=== PATIENT | female | born 1990 | race African-American/Black ===

== ENCOUNTER 2018-03-24 10:38 | Inpatient (IN) | payer MEDICAID ==
[~2018-03-24] VITALS: Ht 165.1 cm; Wt 51.3 kg
[2018-03-24] MEDS ORDERED: INSU100C SQ (10:53)
[2018-03-24] MEDS ORDERED: SULF1TAB48 PO (10:53)
[2018-03-24] MEDS ORDERED: ESCI20TA PO (10:53)
[2018-03-24] MEDS ORDERED: INSU100V7 SQ (10:53)
[2018-03-24] MEDS ORDERED: SUMA50TA PO (10:53)
[2018-03-24] MEDS ORDERED: IV NORMAL SALINE 1000 ML BAG IV ONE ×2 (11:00→12:15)
[2018-03-24] MEDS ORDERED: ONDANSETRON 4 MG/2 ML VIAL IV ONE (11:00)
[2018-03-24] MEDS ORDERED: ONDANSETRON 4 MG/2 ML VIAL ONE (11:04)
[2018-03-24 11:40] LABS: CREATININE 0.7 mg/dL (0.6-1.3); POTASSIUM 4.2 mmol/L (3.5-5.1)
[2018-03-24 11:43] LABS: BASOPHILS % (AUTO) 0.2 % (0.0-2.0); EOSINOPHILS # (AUTO) 0.1 K/uL (0.0-0.7); HEMATOCRIT 40.9 % (31.2-41.9); HEMOGLOBIN 13.9 g/dL (10.9-14.3); LYMPHOCYTES # (AUTO) 0.3 K/uL (20.0-40.0); MEAN CORPUSCULAR HEMOGLOBIN 30.2 uug (24.7-32.8); MONOCYTES # (AUTO) 0.4 K/uL (2.0-10.0); NEUTROPHILS # (AUTO) 0.9 K/uL (1.8-8.9); RED BLOOD CELL COUNT(AUTO) 4.61 MIL/uL (3.63-4.92)
[2018-03-24 11:45] LABS: BILIRUBIN,DIRECT 0.1 mg/dL (0.0-0.2); BILIRUBIN,TOTAL 0.5 mg/dL (0.2-1.0); TOTAL PROTEIN, SERUM 6.3 g/dL (6.4-8.2)
[2018-03-24 11:49] LABS: EOSINOPHILS % (AUTO) 7.5 % (0.0-7.0); LYMPHOCYTES % (AUTO) 19.1 % (20.5-51.5); MEAN CORPUSCULAR HGB CONC 34 g/dL (32.3-35.6); MEAN CORPUSCULAR VOLUME 88.7 fL (75.5-95.3); NEUTROPHILS % (AUTO) 51.2 % (38.5-71.5); PLATELET COUNT (AUTO) 132 K/uL (179-408)
[2018-03-24 11:51] LABS: WHITE BLOOD COUNT (AUTO) 1.7 K/uL (3.8-11.8)
[2018-03-24 12:05] LABS: *BILIRUBIN,URIN NEGATIVE (NEGATIVE); *BLOOD, URINE NEGATIVE (NEGATIVE); *CLARITY,URINE CLEAR (CLEAR); *COLOR,URINE YELLOW (YELLOW); *KETONES,URINE 2+ (NEGATIVE); *PROTEIN,URINE NEGATIVE (NEGATIVE); *UROBILINOGEN,URINE 0.2 E.U./dl (NORMAL); LEUKOCYTE ESTERASE ,URINE TRACE (NEGATIVE); NITRITE, URINE NEGATIVE (NEGATIVE)
[2018-03-24 12:07] LABS: UGLUCOSE 2+ (NEGATIVE)
[2018-03-24 12:18] LABS: BACTERIA,URINE MODERATE /HPF (NONE SEEN); SQUAMOUS EPITHELIAL CELL,UR MODERATE /HPF (NONE SEEN)
[2018-03-24] MEDS ORDERED: CEFTRIAXONE 1 G in IV DEXTROSE 5% 50 ML IV ONE (12:45)
[2018-03-24] MEDS ORDERED: CEFTRIAXONE 1 G VIAL ONE (12:47)
[2018-03-24 12:55] LABS: BAND % (MANUAL) 10 % (0-10); EOSINOPHILS % (MANUAL) 8 % (0-8); METAMYELOCYTES % 1 % (0-1); MYELOCYTES % 1 % (0-0); NEUTROPHILS % (MANUAL) 38 % (42-75)
[2018-03-24 12:56] LABS: LYMPHOCYTES % (MANUAL) 25 % (20-40); MONOCYTES % (MANUAL) 16 % (2-10)
[2018-03-24 13:01] LABS: REACTIVE LYMPHOCYTES 1 % (0-0)
--- NOTE | 2018-03-24 13:50 | NUR ---
Pt. admitted to [facility] , under care of Dr. GONSALES Belongs List completed
[2018-03-24 14:30] VITALS: BP 107/71
--- NOTE | 2018-03-24 14:30 | NUR ---
PT TRANSFERED TO FLOOR N STABLE CONDITION
[2018-03-24] MEDS ORDERED: DEXTROSE 50% 50 ML DISP.SYRIN IV PRN (15:45)
[2018-03-24] MEDS ORDERED: MORPHINE SULFATE 2 MG/1 ML DISP.SYRIN IV PRN (15:45)
[2018-03-24] MEDS ORDERED: ONDANSETRON 4 MG/2 ML VIAL IV PRN (15:45)
[2018-03-24] MEDS ORDERED: HYDROCODONE/APAP 5-325MG TABLET PO PRN (15:45)
[2018-03-24] MEDS ORDERED: INSULIN REGULAR, HUMAN 300 UNITS/3 ML VIAL SQ PRN (15:45)
[2018-03-24] MEDS ORDERED: SUMATRIPTAN SUCCINATE 50 MG TABLET PO PRN (15:45)
[2018-03-24 16:00] VITALS: BP 86/56
[2018-03-24] MEDS: BLOOD SUGAR DIAGNOSTIC 1 EACH STRIP VI SCH ×2 (16:44→20:34)
[2018-03-24] MEDS: ACETAMINOPHEN 325 MG TABLET PO PRN (17:14)
[2018-03-24] MEDS: INSULIN REGULAR, HUMAN 300 UNIT/3 ML VIAL SQ PRN (17:15)
[2018-03-24] MEDS ORDERED: ESCI10TA PO (17:22)
[2018-03-24] MEDS: ESCITALOPRAM OXALATE 10 MG TABLET PO SCH (18:10)
[2018-03-24 18:14] LABS: BASOPHILS % (AUTO) 0.1 % (0.0-2.0); EOSINOPHILS # (AUTO) 0.2 K/uL (0.0-0.7); EOSINOPHILS % (AUTO) 8.3 % (0.0-7.0); HEMATOCRIT 39.6 % (31.2-41.9); HEMOGLOBIN 13.5 g/dL (10.9-14.3); LYMPHOCYTES # (AUTO) 0.8 K/uL (20.0-40.0); LYMPHOCYTES % (AUTO) 43.7 % (20.5-51.5); MEAN CORPUSCULAR HEMOGLOBIN 29.9 uug (24.7-32.8); MEAN CORPUSCULAR HGB CONC 34 g/dL (32.3-35.6); MEAN CORPUSCULAR VOLUME 87.9 fL (75.5-95.3); MONOCYTES # (AUTO) 0.4 K/uL (2.0-10.0); NEUTROPHILS # (AUTO) 0.5 K/uL (1.8-8.9); NEUTROPHILS % (AUTO) 26.9 % (38.5-71.5); PLATELET COUNT (AUTO) 152 K/uL (179-408); RED BLOOD CELL COUNT(AUTO) 4.51 MIL/uL (3.63-4.92)
--- NOTE | 2018-03-24 18:22 | NUR ---
PT IN BED RESTING, CALM, COOPERATIVE, BOYFRIEND AT BEDSIDE, NO SIGNS OF ACUTE DISTRESS, ON ROOM AIR, DENIES PAIN AT THIS TIME. CONTINUE TO MONITOR PT.
[2018-03-24 18:37] LABS: BAND % (MANUAL) 7 % (0-10); EOSINOPHILS % (MANUAL) 10 % (0-8); LYMPHOCYTES % (MANUAL) 41 % (20-40); MONOCYTES % (MANUAL) 18 % (2-10); NEUTROPHILS % (MANUAL) 24 % (42-75); WHITE BLOOD COUNT (AUTO) 1.9 K/uL (3.8-11.8)
--- NOTE | 2018-03-24 19:00 | NUR ---
RECEIVED PATIENT IN BED, ALERT ORIENTED, NO SOB NO CHEST PAIN, RYTHM SINUS RYTHM, CALL LIGHT WITHIN REACH, FAMILY AT BEDSIDE. CALL LIGHT WITHIN REACH.
[2018-03-24] MEDS: IV NS 1000 ML 1,000 ML IV PRN (19:27)
[2018-03-24 20:00] VITALS: BP 97/58
[2018-03-24] MEDS: INSULIN GLARGINE,HUM 300 UNITS/3 ML CARTRIDGE SQ SCH (20:51)
[2018-03-25] VITALS: BP 98/59
[2018-03-25 04:00] VITALS: BP 96/62
[2018-03-25 06:08] LABS: BASOPHILS % (AUTO) 0.3 % (0.0-2.0); EOSINOPHILS # (AUTO) 0.2 K/uL (0.0-0.7); EOSINOPHILS % (AUTO) 9.8 % (0.0-7.0); HEMATOCRIT 38.8 % (31.2-41.9); LYMPHOCYTES % (AUTO) 45.8 % (20.5-51.5); MEAN CORPUSCULAR HEMOGLOBIN 29.9 uug (24.7-32.8); MEAN CORPUSCULAR HGB CONC 34 g/dL (32.3-35.6); MEAN CORPUSCULAR VOLUME 89.2 fL (75.5-95.3); MONOCYTES # (AUTO) 0.4 K/uL (2.0-10.0); NEUTROPHILS # (AUTO) 0.5 K/uL (1.8-8.9); NEUTROPHILS % (AUTO) 25.1 % (38.5-71.5); PLATELET COUNT (AUTO) 147 K/uL (179-408); RED BLOOD CELL COUNT(AUTO) 4.35 MIL/uL (3.63-4.92); WHITE BLOOD COUNT (AUTO) 2.1 K/uL (3.8-11.8)
[2018-03-25] MEDS: BLOOD SUGAR DIAGNOSTIC 1 EACH STRIP VI SCH ×4 (06:29→20:32)
[2018-03-25] MEDS: PANTOPRAZOLE SODIUM 40 MG TABLET.DR PO SCH (06:30)
--- NOTE | 2018-03-25 06:44 | NUR ---
PATIENT SLEPT MOST OF THE NIGHT, NO SOB NO CHEST PAIN, NO COMPLAIN OF PAIN AT THIS TIME. CONT TO MONITOR.
[2018-03-25 06:56] LABS: CARBON DIOXIDE 26 mmol/L (21-32); CHLORIDE 104 mmol/L (98-107); CREATININE 0.4 mg/dL (0.6-1.3); GLUCOSE 103 mg/dL (74-106); MAGNESIUM 1.7 mg/dL (1.8-2.4); PHOSPHOROUS 3.7 mg/dL (2.5-4.9); POTASSIUM 3.7 mmol/L (3.5-5.1); UREA NITROGEN, BLOOD 7 mg/dL (7-18)
--- NOTE | 2018-03-25 07:05 | NUR ---
Received patient in bed, awake, alert and oriented x4, in no acute distress. Denies chest pain or SOB. Still with c/o bilateral flank pain 12/19, dysuria, but no hematuria or sediments noted. IV site on LH intact, IV fluids NS running at 80cc/hr. Will continue to monitor Addendum: 03/25/18 at 0844 by KAI GARCIA RN NSR on monitor, HR of 100
[2018-03-25] MEDS: IV NS 1000 ML 1,000 ML IV PRN (07:14)
[2018-03-25] MEDS: ESCITALOPRAM OXALATE 10 MG TABLET PO SCH (08:05)
[2018-03-25 08:30] VITALS: BP 112/72
[2018-03-25] MEDS ORDERED: ESCITALOPRAM OXALATE PO SCH (09:00)
[2018-03-25 10:26] LABS: BAND % (MANUAL) 7 % (0-10); EOSINOPHILS % (MANUAL) 6 % (0-8); LYMPHOCYTES % (MANUAL) 52 % (20-40); MONOCYTES % (MANUAL) 17 % (2-10); NEUTROPHILS % (MANUAL) 16 % (42-75)
[2018-03-25] MEDS: ACETAMINOPHEN 325 MG TABLET PO PRN ×2 (10:26→17:01)
[2018-03-25 11:38] VITALS: BP 101/67
[2018-03-25] MEDS: INSULIN REGULAR, HUMAN 300 UNIT/3 ML VIAL SQ PRN ×2 (11:45→16:57)
[2018-03-25] MEDS: CEFTRIAXONE 1 G in IV DEXTROSE 5% 50 ML IV SCH (12:14)
[2018-03-25] MEDS ORDERED: MAGNESIUM OXIDE 400 MG TABLET PO ONE (12:30)
[2018-03-25 16:31] VITALS: BP 105/75
[2018-03-25] MEDS: INSULIN REGULAR, HUMAN 300 UNIT/3 ML VIAL SQ SCH (18:07)
--- NOTE | 2018-03-25 18:28 | NUR ---
End of shift note: Patient is alert and oriented x4, in no acute distress. Denies any pain or SOB at this time. Continues on IV atb and IV fluids NS at 80cc/hr, able to tolerate well. No acute change of condition noted. All needs attended and met. Will continue to monitor
--- NOTE | 2018-03-25 19:00 | NUR ---
Received patient in bed alert oriented, no sob no chest pain noted, no complain of pain nor discomfort, cont to monitor.
[2018-03-25 20:00] VITALS: BP 104/71
[2018-03-25] MEDS: INSULIN GLARGINE,HUM 300 UNITS/3 ML CARTRIDGE SQ SCH (20:35)
--- NOTE | 2018-03-25 20:43 | NUR ---
Patient refused IV fluids stated she doesnt want it anymore.
--- NOTE | 2018-03-25 21:49 | NUR ---
Notify Dr. Dwain Delaney patient wanted sleeping pill, with order of Ambien 5mg po prn once.
[2018-03-25] MEDS ORDERED: ZOLPIDEM 5 MG TABLET PO PRN ×2 (22:00)
[2018-03-26 04:00] VITALS: BP 104/66
--- NOTE | 2018-03-26 05:35 | NUR ---
PATIENT SLEPT MOST OF THE NIGHT, NO SOB NO CHEST PAIN NOTED, CALL LIGHT WITHIN REACH.
[2018-03-26] MEDS: BLOOD SUGAR DIAGNOSTIC 1 EACH STRIP VI SCH ×3 (05:54→16:30)
[2018-03-26] MEDS: PANTOPRAZOLE SODIUM 40 MG TABLET.DR PO SCH (05:54)
[2018-03-26 06:46] LABS: CARBON DIOXIDE 29 mmol/L (21-32); CHLORIDE 105 mmol/L (98-107); CREATININE 0.4 mg/dL (0.6-1.3); GLUCOSE 123 mg/dL (74-106); MAGNESIUM 1.7 mg/dL (1.8-2.4); POTASSIUM 3.8 mmol/L (3.5-5.1); UREA NITROGEN, BLOOD 9 mg/dL (7-18)
[2018-03-26] MEDS: ESCITALOPRAM OXALATE 10 MG TABLET PO SCH (08:31)
[2018-03-26] MEDS: INSULIN REGULAR, HUMAN 300 UNIT/3 ML VIAL SQ SCH (08:33)
[2018-03-26] MEDS: INSULIN REGULAR, HUMAN 300 UNIT/3 ML VIAL SQ PRN (11:36)
[2018-03-26] MEDS: CEFTRIAXONE 1 G in IV DEXTROSE 5% 50 ML IV SCH (11:43)
[2018-03-26 11:45] VITALS: BP 116/77
[2018-03-26] MEDS: MAGNESIUM SULFATE/D5W 100 ML IV SCH ×2 (12:13→13:44)
[2018-03-26 15:34] VITALS: BP 108/71
--- NOTE | 2018-03-26 16:30 | NUR ---
PATIENT DISCHARGED TO [facility] ON [address]. DISCHARGE INSTRUCTIONS/PATIENT TEACHINGS PROVIDED, PT VERBALIZED UNDERSTANDING. BELONGING LIST DONE, PT OWN MEDICATIONS RETURNED, PT ACKNOWLEDGED. IV ACCESS AND ID BAND REMOVED. PROVIDED KENDRICK JOEL FOR BUS TRANSPORTATION. PT IS AMBULATORY, IN NO DISTRESS, ACCOMPANIED BY BOYFRIEND.
== END 2018-03-26 16:27 | disposition home or self-care (01) | DRG 720 ==
LOC: ER 10:38 → TELE 14:05 → MED 03-25 12:50
PROVIDERS: ADMIT Internal Medicine; ATTEND Internal Medicine
DX: A41.9 Sepsis, unspecified organism (principal); E10.40 Type 1 diabetes mellitus with diabetic neuropathy, unspecified; D69.6 Thrombocytopenia, unspecified; E44.0 Moderate protein-calorie malnutrition; D70.9 Neutropenia, unspecified; E10.65 Type 1 diabetes mellitus with hyperglycemia; E88.09 Other disorders of plasma-protein metabolism, not elsewhere classified; N12 Tubulo-interstitial nephritis, not specified as acute or chronic; E83.39 Other disorders of phosphorus metabolism; Z68.1 Body mass index [BMI] 19.9 or less, adult; Z79.4 Long term (current) use of insulin; F41.9 Anxiety disorder, unspecified; Z79.899 Other long term (current) drug therapy; Z86.59 Personal history of other mental and behavioral disorders
CPT/HCPCS: 36415; 82746; 83605; 83690; 83735; 84100; 84703; 85025; 87040; 87086; 87806; 93005; A4663; J0696; J1815; J2405; J3475; J7030; J7050; J7060

== ENCOUNTER 2018-03-30 12:29 | Inpatient (IN) | payer MEDICAID ==
[~2018-03-30] VITALS: Ht 165.1 cm; Wt 47.6 kg
[2018-03-30] VITALS (9 sets, daily range): BP systolic 101–134; BP diastolic 55–98
[~2018-03-30 12:29] MED LIST: ESCI10TA PO; ESCI20TA PO; INSU100C SQ; INSU100V7 SQ; SULF1TAB48 PO; SUMA50TA PO
[2018-03-30] MEDS ORDERED: ONDANSETRON 4 MG/2 ML VIAL IV ONE (13:00)
[2018-03-30] MEDS ORDERED: IV NORMAL SALINE 1000 ML BAG IV ONE (13:00)
[2018-03-30] MEDS ORDERED: ONDANSETRON 4 MG/2 ML VIAL ONE ×3 (13:04→14:49)
[2018-03-30 13:18] LABS: BASOPHILS % (AUTO) 0.5 % (0.0-2.0); EOSINOPHILS % (AUTO) 0.4 % (0.0-7.0); HEMATOCRIT 47.9 % (31.2-41.9); HEMOGLOBIN 16.2 g/dL (10.9-14.3); LYMPHOCYTES # (AUTO) 2.1 K/uL (20.0-40.0); LYMPHOCYTES % (AUTO) 24.8 % (20.5-51.5); MEAN CORPUSCULAR HEMOGLOBIN 30.1 uug (24.7-32.8); MEAN CORPUSCULAR HGB CONC 34 g/dL (32.3-35.6); MONOCYTES # (AUTO) 0.7 K/uL (2.0-10.0); MONOCYTES % (AUTO) 8.5 % (0.0-11.0); NEUTROPHILS # (AUTO) 5.5 K/uL (1.8-8.9); NEUTROPHILS % (AUTO) 65.8 % (38.5-71.5); PLATELET COUNT (AUTO) 694 K/uL (179-408); RED BLOOD CELL COUNT(AUTO) 5.38 MIL/uL (3.63-4.92); WHITE BLOOD COUNT (AUTO) 8.4 K/uL (3.8-11.8)
[2018-03-30 13:21] LABS: *BILIRUBIN,URIN 1+ (NEGATIVE); *BLOOD, URINE NEGATIVE (NEGATIVE); *CLARITY,URINE CLEAR (CLEAR); *COLOR,URINE YELLOW (YELLOW); *KETONES,URINE 4+ (NEGATIVE); *PROTEIN,URINE 1+ (NEGATIVE); *UROBILINOGEN,URINE 0.2 E.U./dl (NORMAL); LEUKOCYTE ESTERASE ,URINE NEGATIVE (NEGATIVE); NITRITE, URINE NEGATIVE (NEGATIVE); UGLUCOSE 2+ (NEGATIVE)
[2018-03-30 13:26] LABS: CREATININE 0.9 mg/dL (0.6-1.3); POTASSIUM 3.7 mmol/L (3.5-5.1)
[2018-03-30 13:29] LABS: BACTERIA,URINE MODERATE /HPF (NONE SEEN); RBC,URINE 0-3 /HPF (0-3); SQUAMOUS EPITHELIAL CELL,UR MODERATE /HPF (NONE SEEN); WBC,URINE 0-3 /HPF (0-3)
[2018-03-30] MEDS ORDERED: IV NORMAL SALINE 500 ML BAG IV ONE (13:30)
[2018-03-30] MEDS ORDERED: ONDANSETRON IV *ER 4 MG/2 ML VIAL IV ONE (13:30)
[2018-03-30 13:31] LABS: BILIRUBIN,DIRECT 0.1 mg/dL (0.0-0.2); BILIRUBIN,TOTAL 1.1 mg/dL (0.2-1.0); TOTAL PROTEIN, SERUM 8.8 g/dL (6.4-8.2)
[2018-03-30] MEDS ORDERED: INSULIN REGULAR, HUMAN 100 UNITS in IV NORMAL SALINE 100 ML IV ONE ×4 (13:45→14:45)
--- NOTE | 2018-03-30 14:01 | NUR ---
Per pt to be admitted to CCU, EPIC paged, nursing steamfitter supervisor notified. Pt resting with eyes closed and no s/s of acute distress noted at this time.
[2018-03-30] MEDS ORDERED: INSULIN REGULAR, HUMAN 100 UNITS in IV NORMAL SALINE 100 ML IV PRN ×4 (14:45→15:00)
[2018-03-30] MEDS ORDERED: PROCHLORPERAZINE EDISYLATE 10 MG/2 ML VIAL ONE (14:56)
[2018-03-30] MEDS ORDERED: PROCHLORPERAZINE EDISYLATE 10 MG/2 ML VIAL IV ONE (15:00)
[2018-03-30] MEDS ORDERED: HYDROCODONE/APAP 5-325MG TABLET PO PRN (15:15)
--- NOTE | 2018-03-30 15:42 | NUR ---
Pt. in the unit from ER. AAOX4 vitals as follow SBP of 117/98, rr 16, HR 114 temp of 97.6. Iv line infusing with regular insulin at 5U/hr. blood sugar of 211. IV line to LAC G20, and RFA G22. At this time pt. with nausea and vomiting. Patient started on IV fluids as ordered. Over all skin clean and intact.
--- NOTE | 2018-03-30 15:47 | NUR ---
SBAR report given to FANTA Richardson pt trans to CCU.
[2018-03-30] MEDS: BLOOD SUGAR DIAGNOSTIC 1 EACH STRIP VI SCH ×8 (16:14→23:18)
[2018-03-30] MEDS: IV NS 1000 ML 1,000 ML IV PRN (16:15)
[2018-03-30 16:19] LABS: CREATININE 0.7 mg/dL (0.6-1.3); POTASSIUM 3.5 mmol/L (3.5-5.1)
[2018-03-30] MEDS: ONDANSETRON 4 MG/2 ML VIAL IV PRN (18:08)
[2018-03-30 20:24] LABS: CARBON DIOXIDE 15 mmol/L (21-32); CHLORIDE 104 mmol/L (98-107); CREATININE 0.6 mg/dL (0.6-1.3); GLUCOSE 119 mg/dL (74-106); POTASSIUM 3.6 mmol/L (3.5-5.1); UREA NITROGEN, BLOOD 16 mg/dL (7-18)
[2018-03-31] VITALS (13 sets, daily range): BP systolic 100–134; BP diastolic 60–88
--- NOTE | 2018-03-31 00:01 | NUR ---
Con't N/V; Insulin gtt with Q1H accu-check.
[2018-03-31] MEDS: IV NS 1000 ML 1,000 ML IV PRN ×3 (00:13→15:33)
[2018-03-31] MEDS: BLOOD SUGAR DIAGNOSTIC 1 EACH STRIP VI SCH ×13 (00:13→20:09)
[2018-03-31 00:24] LABS: CARBON DIOXIDE 18 mmol/L (21-32); CHLORIDE 103 mmol/L (98-107); CREATININE 0.6 mg/dL (0.6-1.3); GLUCOSE 111 mg/dL (74-106); POTASSIUM 3.5 mmol/L (3.5-5.1); UREA NITROGEN, BLOOD 15 mg/dL (7-18)
[2018-03-31] MEDS: ONDANSETRON 4 MG/2 ML VIAL IV PRN ×4 (00:46→23:37)
[2018-03-31 04:48] LABS: ALANINE AMINOTRANSFERASE 42 U/L (14-59); ALKALINE PHOSPHATASE 68 U/L (50-136); ASPARTATE AMINOTRANSFERASE 25 U/L (15-37); BILIRUBIN,TOTAL 0.7 mg/dL (0.2-1.0); CARBON DIOXIDE 17 mmol/L (21-32); CHLORIDE 103 mmol/L (98-107); CREATININE 0.6 mg/dL (0.6-1.3); GLUCOSE 181 mg/dL (74-106); MAGNESIUM 1.4 mg/dL (1.8-2.4); POTASSIUM 3.2 mmol/L (3.5-5.1); TOTAL PROTEIN, SERUM 6.2 g/dL (6.4-8.2); UREA NITROGEN, BLOOD 12 mg/dL (7-18)
[2018-03-31 06:01] LABS: BASOPHILS % (AUTO) 0.1 % (0.0-2.0); EOSINOPHILS % (AUTO) 0.3 % (0.0-7.0); HEMATOCRIT 38.3 % (31.2-41.9); HEMOGLOBIN 12.6 g/dL (10.9-14.3); LYMPHOCYTES # (AUTO) 1.6 K/uL (20.0-40.0); LYMPHOCYTES % (AUTO) 16.4 % (20.5-51.5); MEAN CORPUSCULAR HEMOGLOBIN 29.8 uug (24.7-32.8); MEAN CORPUSCULAR HGB CONC 33 g/dL (32.3-35.6); MONOCYTES # (AUTO) 0.9 K/uL (2.0-10.0); MONOCYTES % (AUTO) 9.5 % (0.0-11.0); NEUTROPHILS # (AUTO) 7.3 K/uL (1.8-8.9); NEUTROPHILS % (AUTO) 73.7 % (38.5-71.5); PLATELET COUNT (AUTO) 557 K/uL (179-408); RED BLOOD CELL COUNT(AUTO) 4.21 MIL/uL (3.63-4.92)
--- NOTE | 2018-03-31 07:40 | NUR ---
medicated for 1 episode of nausea and vomiting Addendum: 03/31/18 at 0823 by PEPITO WHITTEN RN Amended: Marisol added. Addendum: 03/31/18 at 08 by PEPITO WHITTEN RN Amended: Marisol added.
--- NOTE | 2018-03-31 08:00 | NUR ---
accucheck 104/ insulin drip at 1 unit per hr Addendum: 03/31/18 at 0825 by PEPITO WHITTEN RN Amended: Links added.
[2018-03-31] MEDS: PANTOPRAZOLE SODIUM 40 MG VIAL IV SCH (08:54)
[2018-03-31] MEDS ORDERED: DEXTROSE 50% 50 ML DISP.SYRIN IV PRN (09:45)
[2018-03-31] MEDS ORDERED: INSULIN REGULAR, HUMAN 300 UNITS/3 ML VIAL SQ PRN (09:45)
[2018-03-31] MEDS ORDERED: POTASSIUM CHLORIDE 20 MEQ POWDER PACKET PO ONE (10:00)
[2018-03-31] MEDS ORDERED: BLOOD SUGAR DIAGNOSTIC 1 EACH STRIP VI SCH (10:00)
--- NOTE | 2018-03-31 10:02 | NUR ---
seen by Ashley. transfer orders to [facility] received. insulin papa soliz/d Addendum: 03/31/18 [address] [facility] by PEPITO WHITTEN RN Amended: Links added.
[2018-03-31] MEDS: MAGNESIUM SULFATE/D5W 100 ML IV SCH ×2 (10:59→12:29)
--- NOTE | 2018-03-31 11:12 | NUR ---
magnesium 1.4, covered with 2gms mag sulfate IV over 2 hrs Addendum: 03/31/18 at 1113 by PEPITO WHITTEN RN Amended: Links added.
--- NOTE | 2018-03-31 11:15 | NUR ---
matt 3.2, covered with 40meq low scott Addendum: 03/31/18 at 1115 by PEPITO WHITTEN RN Amended: Links added.
--- NOTE | 2018-03-31 11:30 | NUR ---
transferredto to Medical floor room 216 via wheelchair pat verbally eexpressed feelin very weak. up to BR and voided Addendum: 03/31/18 at 1247 by PEPITO WHITTEN RN Amended: Links added.
--- NOTE | 2018-03-31 12:30 | NUR ---
accucheck 129, no insulin coverage Addendum: 03/31/18 at 1257 by PEPITO WHITTEN RN Amended: Links added.
[2018-03-31] MEDS: INSULIN REGULAR, HUMAN 300 UNIT/3 ML VIAL SQ SCH (17:17)
[2018-03-31] MEDS: INSULIN REGULAR, HUMAN 300 UNIT/3 ML VIAL SQ PRN (17:20)
--- NOTE | 2018-03-31 17:36 | NUR ---
marcelo 304, covered by 6 units earleulin R SQ Addendum: 03/31/18 at 1736 by PEPITO WHITTEN RN Amended: Links added.
--- NOTE | 2018-03-31 19:21 | NUR ---
report given to Dyllan RN Addendum: 03/31/18 at 1921 by PEPITO WHITTEN RN Amended: Links added.
--- NOTE | 2018-03-31 19:50 | NUR ---
RECEIVED PATIENT IN BED, NO NAUSEA NO VOMITING NOTED, NO COMPLAIN OF PAIN AT THIS TIME. CALL LIGHT WITHIN REACH.
[2018-03-31] MEDS ORDERED: INSULIN GLARGINE,HUM 300 UNITS/3 ML CARTRIDGE SQ SCH (21:00)
[2018-04-01] MEDS: IV NS 1000 ML 1,000 ML IV PRN ×2 (00:21→09:49)
[2018-04-01 04:00] VITALS: BP 108/69
[2018-04-01] MEDS: BLOOD SUGAR DIAGNOSTIC 1 EACH STRIP VI SCH ×2 (05:27→11:29)
--- NOTE | 2018-04-01 05:27 | NUR ---
PATIENT BLOOD SUGAR WAS LOW, WHEN CHECK ITS 36, PREFER TO DRINK JUICE, GIVEN APPLE JUICE WITH 4 PACK OF SUGAR. PATIENT SKIN WARM AND DRY, AWAKE ASYMPTOMATIC, RECHECK AFTER 35 MINUTES, BLOOD SUGAR WENT UP TO 62, AND STATE SHE FEELS BETTER. CONT TO MONITOR.
--- NOTE | 2018-04-01 06:16 | NUR ---
PATIENT SLEPT MOST OF THE NIGHT, COMPLAIN OF NAUSEA X1, GIVEN ZOFRAN WITH EFFECTIVE RESULTS. CONT TO MONITOR BLOOD SUGAR. PATIENT HAS JUICES AND SNACK IN THE ROOM , WIIL CONT TO MONITOR FOR NAUSEA AND VOMITING. CALL LIGHT WITHIN REACH. NO S/S OF HYPOGYLCEMIA NOTED.
[2018-04-01 07:28] LABS: CARBON DIOXIDE 18 mmol/L (21-32); CHLORIDE 104 mmol/L (98-107); CREATININE 0.5 mg/dL (0.6-1.3); GLUCOSE 132 mg/dL (74-106); POTASSIUM 3.3 mmol/L (3.5-5.1); UREA NITROGEN, BLOOD 4 mg/dL (7-18)
--- NOTE | 2018-04-01 07:45 | NUR ---
Pt. with /of nausea and stated vomited more than once during night finding no relieve with medication. Dr. Moise called and notified, orders received.
[2018-04-01 08:00] VITALS: BP 123/92
[2018-04-01] MEDS ORDERED: METOCLOPRAMIDE HCL 10 MG/2 ML VIAL IV ONE (08:15)
[2018-04-01] MEDS: PANTOPRAZOLE SODIUM 40 MG VIAL IV SCH (08:33)
[2018-04-01] MEDS: INSULIN REGULAR, HUMAN 300 UNIT/3 ML VIAL SQ SCH (08:37)
--- NOTE | 2018-04-01 08:45 | NUR ---
morning insulin dose held pt. not eating and refused med. blood sugar of 137mmhg. after drinking orange juice. and as reported critically low blood sugar at 0600. Patient stating feeling weak with no sob. boyfriend at bedside. Addendum: 04/01/18 at 0936 by TUNG LIGHT RN Attending physician notified.
[2018-04-01] MEDS ORDERED: POTASSIUM CHLORIDE 20 MEQ TAB.PRT.SR PO ONE (10:30)
[2018-04-01 11:13] LABS: EOSINOPHILS % (AUTO) 0.4 % (0.0-7.0); HEMOGLOBIN 12.4 g/dL (10.9-14.3); LYMPHOCYTES # (AUTO) 1.9 K/uL (20.0-40.0)
[2018-04-01 11:27] LABS: BASOPHILS % (AUTO) 0.4 % (0.0-2.0); HEMATOCRIT 36.8 % (31.2-41.9); LYMPHOCYTES % (AUTO) 27.7 % (20.5-51.5); MEAN CORPUSCULAR HEMOGLOBIN 29.9 uug (24.7-32.8); MEAN CORPUSCULAR HGB CONC 34 g/dL (32.3-35.6); MEAN CORPUSCULAR VOLUME 88.7 fL (75.5-95.3); MONOCYTES # (AUTO) 0.6 K/uL (2.0-10.0); MONOCYTES % (AUTO) 8.5 % (0.0-11.0); NEUTROPHILS # (AUTO) 4.2 K/uL (1.8-8.9); PLATELET COUNT (AUTO) 567 K/uL (179-408); RED BLOOD CELL COUNT(AUTO) 4.15 MIL/uL (3.63-4.92); WHITE BLOOD COUNT (AUTO) 6.7 K/uL (3.8-11.8)
[2018-04-01 11:35] VITALS: BP 129/94
[2018-04-01] MEDS: INSULIN REGULAR, HUMAN 300 UNIT/3 ML VIAL SQ PRN (11:35)
[2018-04-01] MEDS ORDERED: ESCITALOPRAM OXALATE 10 MG TABLET PO SCH (11:45)
[2018-04-01] MEDS ORDERED: Insulin Glargine,Hum SQ (13:50)
--- NOTE | 2018-04-01 14:15 | NUR ---
DCD instructions and prescription given to patient as well as education on diabetes, and recommendations to follow up her PCP. Transportation juanita consistent of $2.00 issued by [employer]. As soon she received the money patient gave $1.00 to her boyfriend who remains at her side. Patient wheel down by candy packer. No c/o of n/v AAOX4. VSS. no c/of pain. As stated by her "I need to be at [facility] before 1500 or they will reject me"
== END 2018-04-01 14:25 | disposition home or self-care (01) | DRG 420 ==
LOC: ER 12:29 → CCU 15:20 → MED 03-31 12:05
PROVIDERS: ADMIT Nurse Practitioner Acute Care; ATTEND Nurse Practitioner Acute Care
DX: E10.10 Type 1 diabetes mellitus with ketoacidosis without coma (principal); E43 Unspecified severe protein-calorie malnutrition; E10.40 Type 1 diabetes mellitus with diabetic neuropathy, unspecified; Z91.14 Patient's other noncompliance with medication regimen; Z79.4 Long term (current) use of insulin; Z59.0 Homelessness; Z68.1 Body mass index [BMI] 19.9 or less, adult; E87.6 Hypokalemia; E83.42 Hypomagnesemia; E83.51 Hypocalcemia; F32.9 Major depressive disorder, single episode, unspecified; Z87.440 Personal history of urinary (tract) infections; E87.1 Hypo-osmolality and hyponatremia; R11.2 Nausea with vomiting, unspecified
CPT/HCPCS: 36415; 70030-TC; 71045; 83605; 83690; 83735; 84100; 84703; 85025; 93005; A4663; C9113; J0780; J1815; J2405; J2765; J3475; J3490; J7030